=== PATIENT | female | born 1990 | race African-American/Black ===

== ENCOUNTER → 2024-01-02 | Emergency (ER) | payer OTHER ==
[~2024-01-02] VITALS: Ht 160 cm; Wt 101.2 kg
[~2024-01-02] MED LIST: AMOX TR-K CLV1 EAC2 PO; AMOXICILLIN500 MG PO; DIPHENHYDRAMINE25 M2 PO; IBUPROFEN200 MG PO; MELOXICAM7.5 MG PO; OFLOXACIN5 ML RIGHT EAR; TYLENOL325 MG PO
[2024-01-02 12:20] VITALS: PULSE 72; RESP 16; TEMP 98.7; O2SAT 99
== END | disposition home or self-care (01) ==
LOC: FSED 11:42
DX: K08.89 Other specified disorders of teeth and supporting structures (principal); H60.91 Unspecified otitis externa, right ear